=== PATIENT | female | born 1945 | race Caucasian/White ===

== ENCOUNTER 2019-07-27 11:48 | Outpatient (CLI) | payer MEDICARE, SELFPAY ==
--- NOTE | ~2019-07-27 | XR_ITS ---
XR knee RT 3V 07/27/2019 12:57 Indication: Right knee pain Procedure: 3 views right knee Comparison: 12/07/2017 Findings: There is mild-moderate osteoarthritis of the right knee. No fracture, subluxation or disloc ation. No significant joint effusion. No radiopaque foreign bodies. Impression: 1: Mild-moderate osteoarthritis of the right knee. Reviewed, dictated and finalized at location A. Impression: 1: Mild-moderate osteoarthritis of the right knee.
--- NOTE | ~2019-07-27 | US_ITS ---
EXAMINATION: US venous doppler LE RT DATE: 07/27/2019 12:21 INDICATION: Right lower limb pain TECHNIQUE: Grayscale ultrasound images without and with compression and Doppler ultrasound images of the right lower extremity veins were obtained. COMPARISON: None. FINDINGS: The visualized portions of right common femoral vein, profunda (deep) femoral vein, femoral vein, pop liteal vein, peroneal trunk, posterior tibial veins, peroneal veins, gastrocnemius vein and greater s aphenous vein outflow are patent. IMPRESSION: 1. No deep venous thrombosis in the right lower limb. Reviewed, dictated and finalized at location A.
--- NOTE | ~2019-07-27 | XR_ITS ---
EXAMINATION: XR hip LT 2V w AP pelvis DATE: 07/27/2019 12:57 INDICATION: Left hip pain. TECHNIQUE: An anteroposterior view of the pelvis and 2 views of left hip were obtained. COMPARISON: Lumbar spine radiograph 07/18/2018 FINDINGS: There is 14 degrees dextroscoliosis and severe spondylosis of lumbar spine. No fracture. Th ere is mild osteoarthritis of the hips. IMPRESSION: 1. Mild osteoarthritis of the hips. Reviewed, dictated and finalized at location A.
--- NOTE | ~2019-07-27 | XR_ITS ---
EXAMINATION: XR ankle RT 2V DATE: 07/27/2019 12:56 INDICATION: Right ankle pain. TECHNIQUE: 4 views of right ankle were obtained. COMPARISON: Right foot radiographs 12/07/2017 FINDINGS: Bone alignment is normal. No fracture. There are changes of ankylosis procedures of the fir st through third tarsometatarsal joints with instrumentation. There is severe osteoarthritis of the n aviculocuneiform joints and mild osteoarthritis of talonavicular joint. There are enthesophytes at th e posterior and plantar aspects of calcaneal tuberosity. Ankle soft tissue swelling is noted. IMPRESSION: 1. Polyarticular osteoarthritis. Reviewed, dictated and finalized at location A.
== END 2019-07-27 11:49 | disposition home or self-care (01) ==
PROVIDERS: PCP Family Medicine; Visit Provider Family Medicine
DX: M79.89 Other specified soft tissue disorders (principal); M16.0 Bilateral primary osteoarthritis of hip; M19.071 Primary osteoarthritis, right ankle and foot; M17.11 Unilateral primary osteoarthritis, right knee
CPT/HCPCS: 73502; 73562; 73600; 93971

== ENCOUNTER 2019-11-01 09:44 | Outpatient (CLI) | payer MEDICARE, SELFPAY ==
--- NOTE | 2019-11-01 09:45 | ECG_ITS ---
Measurements Intervals [place] Rate: 68 P: -2 MA: 149 QRS: 1 QRSD: 100 T: 14 QT: 407 QTc: 435 Interpretive Statements SINUS RHYTHM INCOMPLETE RIGHT BUNDLE BRANCH BLOCK BORDERLINE T WAVE ABNORMALITY- INFERIOR LEADS BASELINE ARTIFACT- II, III, AVF, V1-V2 BORDERLINE ECG Electronically Signed On 11-01-2019 10:06:31 CDT by Carlos Hastings D.O.
[2019-11-01 10:32] LABS: Anion Gap 6 mmol/L (8-16); Blood Urea Nitrogen 23 mg/dL (7-17); Calcium 9.4 mg/dL (8.4-10.2); Carbon Dioxide 27 mmol/L (22-30); Chloride 105 mmol/L (98-107); Estimated Glomerular Filt Rate > 60; Glucose 107 mg/dL (65-105); Potassium 3.9 mmol/L (3.4-5.0); Sodium 138 mmol/L (137-145)
== END 2019-11-01 09:45 | disposition home or self-care (01) ==
LOC: ANHSURGERY 09:45
PROVIDERS: Anesthesiology; PCP Family Medicine; Visit Provider Urology
DX: N39.3 Stress incontinence (female) (male) (principal); Z79.899 Other long term (current) drug therapy; I10 Essential (primary) hypertension; Z01.818 Encounter for other preprocedural examination
CPT/HCPCS: 36415; 80048; 87077; 87086; 87088; 87186; 93005

== ENCOUNTER 2019-11-08 02:56 | Outpatient (CLI) | payer MEDICARE, SELFPAY ==
[2019-11-08 18:40] LABS: SARS-CoV-2 RNA PCR Negative
== END 2019-11-08 02:57 | disposition home or self-care (01) ==
LOC: ANHCOVIDDT 02:59
PROVIDERS: PCP Family Medicine; Visit Provider Urology
DX: Z01.812 Encounter for preprocedural laboratory examination (principal); Z20.828 Contact with and (suspected) exposure to other viral communicable diseases
CPT/HCPCS: 87635; C9803; U0003

== ENCOUNTER 2019-11-10 01:26 | Day surgery (SDC) | payer MEDICARE, SELFPAY ==
[2019-10-31 10:00] VITALS: BMI 33.3
--- NOTE | 2019-11-05 10:48 | PM.IMHP ---
H&P: HPI History of Present Illness Date/Time: 11/05/19 10:48 Chief complaint: Stress Incontinence Narrative: Leigh Guzman is a 74 year old female with mixed urinary incontinence. Her overactive bladder symptoms are treated with medications. She is here today for a sling for her stress incontinence Review of Systems Review of Systems: All systems reviewed & are unremarkable except as noted in HPI and below PMFSH Social History Social History Smoking status: Never smoker Second hand tobacco smoke exposure: Yes Alcohol intake: current Drinks per week: 3 Substance use: never Substance use type: does not use Gender identity (if verbalized by the patient): Female Spiritual care concerns: No Agree to blood products: Yes Meds Home Medications and Allergies Home Medications Medication Instructions Recorded Confirmed Type esomeprazole magnesium 20 mg 20 mg PO HS 03/07/19 10/31/19 History tablet,delayed release pramipexole 0.5 mg tablet 0.5 mg PO HS 03/07/19 10/31/19 History mirabegron 25 mg tablet,extended 25 mg PO HS 07/25/19 10/31/19 History release 24 hr biotin 2,500 mcg PO HS 10/31/19 10/31/19 History cyanocobalamin (vitamin B-12) 5,000 mcg PO HS 10/31/19 10/31/19 History irbesartan-hydrochlorothiazide 1 tablet .ROUTE HS 10/31/19 10/31/19 History rosuvastatin 10 mg PO HS 10/31/19 10/31/19 History Allergies Allergy/AdvReac Type Severity Reaction Status Date / Time Penicillins Allergy Unknown RASH/SWELLI Verified 10/31/19 09:54 NG Exam Const: General: no acute distress HENMT: Mouth: Yes moist mucous membranes Eyes: General: appearance normal, both eyes and all related structures Resp: Effort & Inspection: normal respiratory effort GI: GI Palp: Yes Soft to palpation Skin: General skin exam: normal color Neuro: Cognition (Neuro): normal cognition Psych: Mental Status: mental status grossly normal Assessment and Plan Assessment and plan (1) ADAN (stress urinary incontinence, female): Code(s): N39.3 - Stress incontinence (female) (male) Status: Acute Assessment and Plan: urethral sling. Understands it will not address her overactive bladder symptoms
[2019-11-10 06:19] VITALS: BP 116/53; PULSE 70; RESP 18; TEMP 36.8; O2SAT 99
[2019-11-10] MEDS: LACTATED RINGERS 1,000 ML 30 ML IV CONT ×2 (06:30→08:56)
--- NOTE | 2019-11-10 06:53 | P.PNAN_ITS ---
Anes - Initial Pre Proc Eval Procedure: Operation Date: 11/10/19 07:30 Proposed Procedures p Urethral Sling - Juan Arechiga MD Date/Time: 11/10/19 06:53 Surgeon: Juan Arechiga MD Pre Op Diagnosis: Stress Incontinence Patient Data Age: 74 Gender: F Height: 5 ft 5 in Weight: 90.9 kg Allergies Allergy/AdvReac Type Severity Reaction Status Date / Time Penicillins Allergy Unknown RASH/SWELLI Verified 10/31/19 09:54 NG Home Medications Medication Instructions Recorded Confirmed Type esomeprazole magnesium 20 mg 20 mg PO HS 03/07/19 10/31/19 History tablet,delayed release pramipexole 0.5 mg tablet 0.5 mg PO HS 03/07/19 10/31/19 History mirabegron 25 mg tablet,extended 25 mg PO HS 07/25/19 10/31/19 History release 24 hr biotin 2,500 mcg PO HS 10/31/19 10/31/19 History cyanocobalamin (vitamin B-12) 5,000 mcg PO HS 10/31/19 10/31/19 History irbesartan-hydrochlorothiazide 1 tablet .ROUTE HS 10/31/19 10/31/19 History rosuvastatin 10 mg PO HS 10/31/19 10/31/19 History Patient hx anesthesia problems: none Family hx anesthesia problems: none [facility] Past Medical History Medical History (Updated 11/10/19 @ 06:54 by Ghassan Kim MD) GERD (gastroesophageal reflux disease) Hyperlipidemia Hypertension JESSA (obstructive sleep apnea) Requires supplemental oxygen Restless leg syndrome Surgical History Surgical History (Updated 11/10/19 @ 06:54 by Ghassan Kim MD) H/O foot surgery right foot, [address]ice History of appendectomy History of cholecystectomy Social History Social History Smoking status: Never smoker Second hand tobacco smoke exposure: Yes Alcohol intake: current Drinks per week: 3 Substance use: never Substance use type: does not use Living arrangements: alone Gender identity (if verbalized by the patient): Female Spiritual care concerns: No Agree to blood products: Yes Anes - Eval Final PreProcedure Day of Procedure 11/10/19 06:53 Patient weight: obese Heart: regular rate and rhythm Lungs: clear to auscultation Airway: Mallampati scale class II and special considerations poor dentition Neurological: alert and oriented Last oral intake: >/= 8 hours ASA classification: III Emergent: no Anesthetic plan: proceed Anesthesia type and monitoring: general GIVS and standard monitoring Informed Consent: The patient's anesthetic plan and its attendant risks and benefits were discussed with the patient/family/POA. Questions were solicited and answers provided to the satisfaction of the patient/family/POA.
--- NOTE | 2019-11-10 07:18 | WPDHPUPDATE1 ---
History and Physical Update Update Date/Time: 11/10/19 07:18 History and Physical has been reviewed, including an updated exam of the patient. There are NO changes in the patient's condition. Risks, benefits, and alternatives have been discussed and questions answered. Patient agrees to proceed with procedure.
--- NOTE | 2019-11-10 07:25 | WPDHPUPDATE1 ---
History and Physical Update Update Date/Time: 11/10/19 07:25 History and Physical has been reviewed, including an updated exam of the patient. There are NO changes in the patient's condition. Risks, benefits, and alternatives have been discussed and questions answered. Patient agrees to proceed with procedure. will remove skin tag from left thigh as well
[2019-11-10] MEDS: ceFAZolin 2 GM/D5W 50 ML 2 GM/50 ML BAG IVPB (07:27)
[2019-11-10] MEDS: BUPIVACAINE/EPINEPHRINE 0.25% 50 ML VIAL INFILTRATE (07:49)
[2019-11-10 08:04] VITALS: BP 118/48; PULSE 66; RESP 14; TEMP 36.3; O2SAT 100
--- NOTE | 2019-11-10 08:11 | PM.PROC ---
Procedure Note - Detailed Date of procedure: 11/10/19 Pre-op diagnosis: Stress Incontinence Stress urinary incontinence Skin tag left side Post-op diagnosis: same Procedure performed: Transobturator Mid-urethral sling excision of skin tag from the left thigh Cystoscopy Description of procedure: This is a patient with confirmed stress urinary incontinence. She desires correction. She understands the risks of bleeding, infection, damage to the urinary tract, lack of cure of stress incontinence, recurrence of stress incontinence, postoperative voiding dysfunction including incontinence and retention, need for ancillary procedures to loosen remove the sling, postoperative voiding dysfunction including retention and overactive bladder, hip and leg pain, dyspareunia, mesh related complications including exposure and extrusion. She agrees to proceed. She understands it will not help overactive bladder symptoms if present. She was correctly identified and informed consent obtained. She is brought to the operating room. She was given appropriate anesthesia. She was placed in the dorsal lithotomy position. All pressure points were padded. She was given appropriate perioperative antibiotics and a time-out performed. A Mclean catheter is placed. I marked out the thigh incisions anesthetize the skin and made those incisions. I anesthetized the anterior vaginal wall over the mid urethra. I made a 1 cm incision. I dissected out laterally taking great care not to injure the urethra or the vaginal wall. Passed the helical trocars 1st on the left and then on the right from the thigh incision towards the vaginal incision. Sling was connected to the trocars and brought out through the thigh incision. I tensioned the sling appropriately. I cut and removed the plastic sheaths. I closed the incision with 2 0 Vicryl. I then performed cystoscopy. There was no surgical artifact or abnormalities inside the bladder. The urethra was normal without surgical artifact. I cut the excess sling material. I closed the incisions with glue. I then sirisha out on the lips on the skin tag on the left thigh. The skin tag was approximately 1 cm. I excised the skin tag. I closed the skin with a 4OVicryl. Surgical glue was applied. The skin tag was sent to pathology. She was awakened and transferred to the PACU in stable condition. Implants: Mid urethral sling Surgeon: Juan Arechiga MD Drains: No Packing: No Pathology: none sent Complications: No immediate complications Condition: stable Disposition: PACU
[2019-11-10 08:15] VITALS: BP 103/56; PULSE 62; RESP 14; O2SAT 100
--- NOTE | 2019-11-10 08:29 | SUR.PREOP ---
PT ASKED THAT TESTING DIRECTOR ONLY BE CALLED FOR MONITORING ANALYST
[2019-11-10 08:30] VITALS: BP 102/65; PULSE 59; RESP 12; O2SAT 98
[2019-11-10 08:40] VITALS: BP 122/73; PULSE 61; RESP 14
== END 2019-11-10 09:30 | disposition home or self-care (01) ==
PROVIDERS: PCP Family Medicine; Visit Provider Urology
PROC: (CPT 57288; principal; 2019-11-10 07:30)
DX: N39.3 Stress incontinence (female) (male) (principal); L91.8 Other hypertrophic disorders of the skin; I10 Essential (primary) hypertension; E78.5 Hyperlipidemia, unspecified; K21.9 Gastro-esophageal reflux disease without esophagitis; G47.33 Obstructive sleep apnea (adult) (pediatric); Z99.81 Dependence on supplemental oxygen; G25.81 Restless legs syndrome; E66.9 Obesity, unspecified; Z68.33 Body mass index [BMI] 33.0-33.9, adult
CPT/HCPCS: 57288; 11200; 36415; 80048; 87077; 87086; 87088; 87186; 88304; 88305; 93005; A9270; C1771; J0690; J2405; J2704; J3010; J7030; J7120

== ENCOUNTER → 2020-02-29 12:43 | Outpatient (CLI) | payer MEDICARE, SELFPAY ==
--- NOTE | ~2020-02-29 | MM_ITS ---
EXAMINATION: MM screening [facility] BI w zandra HISTORY: Screening TECHNIQUE: Craniocaudal and mediolateral oblique 3-D tomosynthesis images were obtained and synthetic 2-D images were generated. CAD analysis was submitted and interpreted. COMPARISON: Comparison to multiple prior studies sequentially, with oldest reviewed study dated 08/2012. BREAST PARENCHYMAL COMPOSITION: There are scattered areas of fibroglandular density. FINDINGS: There is no evidence of suspicious mass, calcification, or architectural distortion to sugg est malignancy in either breast. There has been no suspicious interval change. IMPRESSION: 1. No mammographic evidence of malignancy. 2. Recommend routine screening mammography in one year. BI-RADS Category 1: Negative Reviewed, dictated and finalized at location A. [employer] [facility]
== END ==
PROVIDERS: PCP Family Medicine; Visit Provider Family Medicine
DX: Z12.31 Encounter for screening mammogram for malignant neoplasm of breast (principal)
CPT/HCPCS: 77063; 77067

== ENCOUNTER 2020-11-20 07:44 | Outpatient (CLI) | payer MEDICARE, SELFPAY ==
--- NOTE | ~2020-11-20 | XR_ITS ---
XR foot RT standing 2V DATE: 11/20/2020 08:10 INDICATION: Right foot pain. No recent injury. TECHNIQUE: Standing AP and lateral views COMPARISON: 12/07/2017 right foot FINDINGS: Postoperative change is noted from arthrodesis at the first through third tarsometatarsal j oints. There is osteoarthritic change at the tarsal joints. There is mild posterior and prominent plantar calcaneal enthesopathy. No recent fracture or dislocation, periosteal reaction or bone destruction. IMPRESSION: Status post arthrodesis at the first through third tarsometatarsal joints Osteolytic change at the tarsal joints Mild posterior and prominent plantar calcaneal enthesopathy Reviewed, dictated and finalized at location A.
--- NOTE | ~2020-11-20 | XR_ITS ---
XR foot LT standing 2V DATE: 11/20/2020 08:10 INDICATION: Left foot pain TECHNIQUE: Standing AP and lateral views COMPARISON: None FINDINGS: There is prominent plantar calcaneal enthesopathy. There is osteoarthritic change at the tarsal and tarsometatarsal joints and first metatarsophalangeal joint. No fracture or dislocation, periosteal reaction or bone destruction. IMPRESSION: Plantar calcaneal enthesopathy Tarsal, tarsometatarsal and first metatarsophalangeal joint osteoarthritis Reviewed, dictated and finalized at location A.
--- NOTE | ~2020-11-20 | XR_ITS ---
XR ankle LT min 3V DATE: 11/20/2020 08:10 INDICATION: Left ankle pain TECHNIQUE: 4 views COMPARISON: None FINDINGS: No fracture or dislocation of the ankle or disruption of the ankle mortise. There is osteoarthritic change at the tarsal and tarsometatarsal joints. Prominent plantar calcaneal enthesopathy. IMPRESSION: No fracture or dislocation of ankle Prominent plantar calcaneal enthesopathy Degenerative changes at the tarsal and tarsometatarsal joints Reviewed, dictated and finalized at location A.
--- NOTE | ~2020-11-20 | XR_ITS ---
XR ankle RT min 3V DATE: 11/20/2020 08:10 INDICATION: Right ankle pain TECHNIQUE: 4 standing views COMPARISON: None FINDINGS: No fracture or dislocation of the ankle or disruption of the ankle mortise. Prominent plantar calcaneal enthesopathy. Mild posterior calcaneal enthesopathy. There are osteoarthritic changes at the tarsal joints. Postoperative change/fusion at the first throu gh third tarsal-metatarsal joints. IMPRESSION: Status post surgical fusion at the first through third tarsometatarsal joints Plantar and posterior calcaneal enthesopathy Reviewed, dictated and finalized at location A. IMPRESSION: Status post surgical fusion at the first through third tarsometatar paola joints Plantar and posterior calcaneal enthesopathy
== END 2020-11-20 07:45 | disposition home or self-care (01) ==
PROVIDERS: PCP Internal Medicine; Visit Provider Internal Medicine
DX: M77.32 Calcaneal spur, left foot (principal); M19.072 Primary osteoarthritis, left ankle and foot; M77.31 Calcaneal spur, right foot
CPT/HCPCS: 73610; 73620

== ENCOUNTER 2020-11-28 08:11 | Outpatient (CLI) | payer MEDICARE, SELFPAY ==
--- NOTE | ~2020-11-28 | CT_ITS ---
EXAMINATION: CT chest high resolution [facility] EXAM DATE: 11/28/2020 08:41 INDICATION: R05.3 - Chronic cough. TECHNIQUE: Spiral CT of the chest without contrast. HRCT. Axial, coronal and sagittal images of the chest were reviewed. Coronal maximum intensity pixel images of chest reviewed. The dose-length prod uct (DLP) for this examination was 239.35 mGy-cm. The exposure was tailored according to patient siz e (auto mA exposure control), and iterative reconstruction (ASIR) was used as additional dose reducti on technique. Comparison is made to prior examination from 04/12/2015. FINDINGS: There is no intralobular septal thickening on the HRCT chest interstitial lung disease. T here are no pleural or pericardial effusions. Tracheobronchial tree is patent. There is no medias tinal, hilar or axillary lymphadenopathy. There is no pneumothorax. Heart normal in size. There is dense left anterior descending coronary artery versus stent, clinical correlation. Consider cardi ology evaluation if patient has not had this. There is right there are lobe nodule along the left posterolateral aspect of the neck measuring 2.5 c m. Deep location might make percutaneous FNA challenging. Consider thyroid ultrasound for risk strati fication. There is thoracic spondylosis without osteoblastic or osteolytic lesions identified. IMPRESSION: 1. Dense left anterior descending coronary artery versus stent, clinical correlation and consider ca rdiology consult if not previously evaluated. 2. Left thyroid lobe nodule; consider thyroid ultrasound for risk stratification. 3. Clear lungs. Reviewed, dictated and finalized at location A. IMPRESSION: 1. Dense left anterior descending coronary artery versus stent, clinical corre lation and consider cardiology consult if not previously evaluated. 2. Left thyroid lobe nodule; consider thyroid ultrasound for risk stratificati on. 3. Clear lungs.
--- NOTE | ~2020-11-28 | XR_ITS ---
EXAMINATION: XR UGI w barium swallow EXAM DATE: 11/28/2020 09:05 INDICATION: R05.3 - Chronic, vomiting after eating. TECHNIQUE: Standard thick followed by thin contrast barium esophagram examination was performed by Dr Van Chong, radiologist. Pulsed dose reduction fluoroscopy was used with fluoroscopic time of 0.6 minutes. The DAP for this procedure was 1.4 Gycm2. A total of 113 images obtained for the exam. Co mparison is made to prior examination from 04/17/2016. FINDINGS: The pharynx is symmetric and without evidence of mass lesion or mucosal irregularity aside from prominent cricopharyngeal impression, finding which was reported on prior study as well. There is no esophageal stricture or mass identified. There are no esophageal diverticula. Small sliding ga stroesophageal hiatal hernia. Reflux was demonstrated during the examination. IMPRESSION: 1. Small hiatal hernia, reflux demonstrated. 2. Prominent cricopharyngeal impression. Reviewed, dictated and finalized at location A.
== END 2020-11-28 08:12 | disposition home or self-care (01) ==
LOC: ANHIMG 08:12
PROVIDERS: PCP Internal Medicine; Visit Provider Internal Medicine
DX: R05.3 Chronic cough (principal); K44.9 Diaphragmatic hernia without obstruction or gangrene; E04.1 Nontoxic single thyroid nodule
CPT/HCPCS: 71250; 74240

== ENCOUNTER 2020-12-05 08:43 | Outpatient (CLI) | payer MEDICARE, SELFPAY ==
--- NOTE | 2020-12-05 09:00 | ECHO_ITS ---
Patient Info Name: Leigh Guzman Age: 75 years : 1945 Gender: Female Ht: 66 in Wt: 196 lbs BSA: 2.06 m2 HR: 76 bpm BP: 100 / 62 mmHg Technical Quality: Good Exam Date: 12/05/2020 9:27 AM Exam Location: [facility] Patient Status: Outpatient Admit Date: 12/05/2020 Staff Ordering Physician: Shankar Saavedra MD Chief Investigator: Clau Nichole RDCS Attending Provider: Shankar Saavedra MD Referring Physician: Quentin MAURICIO; Exam Type: CA echo doppler color flow Study Info Indications R01.1 - Cardiac murmur, unspecified Complete two-dimensional, color flow and Doppler transthoracic echocardiogram is performed. Summary 1. Complete two-dimensional, color flow and Doppler transthoracic echocardiogram is performed. 2. Left ventricular chamber dimension is normal. 3. Left ventricular systolic function is normal, estimated at 60-65%. 4. There is mildly increased left ventricular wall thickness. 5. The left ventricular diastolic function is grade I diastolic dysfunction. 6. E/e' 8 is minimally elevated. 7. Global longitudinal strain is normal at -18.3%. 8. Left atrial chamber dimension is mildly enlarged. 9. Right atrial chamber dimension is mildly enlarged. 10. There is mild mitral valve regurgitation. 11. There is mild tricuspid valve regurgitation. 12. No pulmonary hypertension, estimated pulmonary arterial systolic pressure is 31 mmHg. Left Ventricle E/e' 8 is minimally elevated. Global longitudinal strain is normal at -18.3%. Left ventricular chamber dimension is normal. Left ventricular systolic function is normal, estimated at 60-65%. There is mildly increased left ventricular wall thickness. The left ventricular diastolic function is grade I diastolic dysfunction. Right Ventricle Right ventricular chamber dimension is normal. Right ventricular systolic function is normal. Left Atria Left atrial chamber dimension is mildly enlarged. Right Atria Right atrial chamber dimension is mildly enlarged. Aortic Valve The aortic valve is trileaflet. There is no aortic valve stenosis. There is no aortic valve regurgitation. Pulmonic Valve There is no pulmonic regurgitation. Mitral Valve There is no mitral valve stenosis. There is mild mitral valve regurgitation. Tricuspid Valve There is mild tricuspid valve regurgitation. No pulmonary hypertension, estimated pulmonary arterial systolic pressure is 31 mmHg. Pericardium/Pleural There is no pericardial effusion. Inferior Vena Cava Normal inferior vena cava with >50% collapse upon inspiration consistent with normal right atrial pressure, 5 mmHg. Aorta The aortic root size at the sinus of Valsalva is normal. Left Ventricular Outflow Tract Name Value Normal LVOT 2D LVOT Diameter 2.0 cm LVOT Doppler LVOT Peak Gradient 5 mmHg LVOT Mean Gradient 3 mmHg LVOT VTI 25 cm LVOT VTI/AV VTI Ratio 1.0 LVOT Stroke Volume 75 ml LVOT CO 5.7 l/min
== END 2020-12-05 08:44 | disposition home or self-care (01) ==
PROVIDERS: PCP Internal Medicine; Visit Provider Internal Medicine
DX: G47.33 Obstructive sleep apnea (adult) (pediatric) (principal); R01.1 Cardiac murmur, unspecified; I10 Essential (primary) hypertension; I34.0 Nonrheumatic mitral (valve) insufficiency; I35.1 Nonrheumatic aortic (valve) insufficiency
CPT/HCPCS: 93306

== ENCOUNTER 2021-01-02 12:22 | Outpatient (CLI) | payer MEDICARE, SELFPAY ==
--- NOTE | ~2021-01-02 | US_ITS ---
EXAMINATION: US thyroid DATE: 01/02/2021 12:57 INDICATION: Nontoxic single thyroid nodule. TECHNIQUE: Multiple ultrasound images of the thyroid were obtained. COMPARISON: None. FINDINGS: The right thyroid lobe measures 3.2 x 1.4 x 1.3 cm. The left thyroid lobe measures 3.6 x 1.6 x 1.6 c m. In the left thyroid lobe, there is a 1.2 cm mixed cystic and solid, hypoechoic, avcea-[id number] n odule with smooth margin without echogenic foci (TI-RADS TR3). In the left thyroid lobe, there is an 8 mm solid, hypoechoic, [id number]-[id number]-gyvf nodule with smooth margin without echogenic foci (TR4). IMPRESSION: 1. Thyroid nodules, likely not clinically significant. No follow-up is needed. Reviewed, dictated and finalized at location A. 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
== END 2021-01-02 12:23 | disposition home or self-care (01) ==
PROVIDERS: PCP Internal Medicine; Visit Provider Internal Medicine
DX: E04.2 Nontoxic multinodular goiter (principal)
CPT/HCPCS: 76536

== ENCOUNTER 2021-01-22 07:57 | Outpatient (CLI) | payer MEDICARE, SELFPAY ==
--- NOTE | ~2021-01-22 | DEXA_ITS ---
Bone Density Report Name: CHRIS QURESHI Age: 75 Sex: Female Ethnicity: White Date of : 1945 Indication: postmenopausal; height loss; Referring Provider: NATHANIEL CASILLAS Study: Bone densitometry was performed. Exam Date: January 22, 2021 Accession number: [id number] Bone Density: Region BMD T-score Z-score Classification AP Spine (L1, L2) 1.249 2.5 4.8 Normal Femoral Neck (Left) 0.784 -0.6 1.6 Normal Total Hip (Left) 0.952 0.1 2.0 Normal Total Hip Bilateral Avg 0.959 0.2 2.0 Normal Femoral Neck (Right) 0.706 -1.3 0.9 Osteopenia Total Hip (Right) 0.965 0.2 2.1 Normal World Health Organization criteria for BMD impression classify patients as: Normal (T-score at or above -1.0), Osteopenia (T-score between -1.0 and -2.5), or Osteoporosis (T-score at or below -2.5). 10-year Fracture Risk(1): Major Osteoporotic Fracture 11% Hip Fracture 2.0% Reported Risk Factors: [place] (), Neck BMD=0.706, BMI=33.6 (1) FRAX(R) Version 3.08. Fracture probability calculated for an untreated patient. Fracture probability may be lower if the patient has received treatment. Clinical Information Provided by Patient: Has used the following medications: Vitamin D, Calcium Patient maximum height was 66 Menopause Age: 51 No regular weight bearing exercise Drinks caffeinated beverages Onset of menses at age 12 Number of children 1 Impression: The patient has low bone mass, based on the Right Femoral Neck T-score. The patient has an estimated ten-year risk of hip fracture of 2% and an estimated ten-year risk of major fracture of 11%, based on the WHO FRAX algorithm. Discussion: BONE DENSITY IS LOW AT ONE OR MORE SKELETAL SITES. This patient's lowest T-score is low at one or more skeletal sites. It meets the World Health Organization's (WHO) criteria for ?low bone mass? (T-score between -1.0 and -2.5). The patient's 10-year risk of fracture as calculated by FRAX is less than the threshold where pharmacological therapy is recommended by the National Osteoporosis Foundation (NOF). However, all treatment decisions require clinical judgment and consideration of individual patient factors, including patient preferences, comorbidities, previous drug use, risk factors not captured in the FRAX model (e.g., frailty, falls, vitamin D deficiency, increased bone turnover, interval significant decline in bone density) and possible under or overestimation of fracture risk by FRAX. The patient should follow a healthful lifestyle (good nutrition with adequate calcium and vitamin D, and appropriate weight-bearing exercise). Follow-Up: Consider repeating this study in 2 to 3 years to reassess this patient's status, or sooner if there is some new clinical indication. Reported by: LENKA on 01/22/2021 8:36:00 AM.
== END 2021-01-22 07:58 | disposition home or self-care (01) ==
LOC: ANHIMG 08:04
PROVIDERS: PCP Internal Medicine; Visit Provider Internal Medicine
DX: Z78.0 Asymptomatic menopausal state (principal); M85.851 Other specified disorders of bone density and structure, right thigh
CPT/HCPCS: 77080

== ENCOUNTER 2021-03-13 00:12 | Day surgery (SDC) | payer MEDICARE, SELFPAY ==
[2021-03-04 13:38] VITALS: BMI 32.6
[2021-03-13 09:10] VITALS: BP 146/76; PULSE 72; RESP 16; TEMP 37.1; O2SAT 99; BMI 33.0
[2021-03-13] MEDS: LACTATED RINGERS 1,000 ML 150 ML IV CONT (09:32)
--- NOTE | 2021-03-13 09:36 | PM.HPGS ---
History of Present Illness History of Present Illness Consent: Risks, benefits, and alternatives have been discussed and questions answered. Patient agrees to proceed with procedure. Chief complaint: GERD Narrative: Leigh Guzman is a 75 year old female who has been having episodes of vomiting after meal. This is usually triggered by having a cough. Generally shortly after eating she will cough and then gag and vomit up some food. This happens randomly. It may occur once or twice a week and then not for several weeks. She has been taking Nexium daily for quite a while Review of Systems Review of Systems: All systems reviewed & are unremarkable except as noted in HPI and below PMFSH Past Medical History Medical History BMI 32.0-32.9,adult BMI 33.0-33.9,adult Chronic cough Chronic pain of both feet Degenerative joint disease, ankle, left DJD (degenerative joint disease), multiple sites Encounter for Medicare annual wellness exam Encounter for routine adult health examination without abnormal findings Encounter to establish care GERD (gastroesophageal reflux disease) Grade I diastolic dysfunction Heart murmur Hiatal hernia Hyperlipidemia Hypertension Impacted cerumen of left ear Mitral regurgitation Obstructive sleep apnea 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 Pain, joint, ankle and foot Post-menopausal Pre-diabetes Restless leg syndrome Thyroid nodule Varicose veins of lower extremity Venous insufficiency of both lower extremities Vitamin D deficiency Surgical History Surgical History H/O foot surgery right foot, [address]ice History of bladder repair surgery Family History Family History Father Family history of lung cancer, Onset Age: 74 Patient's father is Family history of malignant neoplasm Mother Family history of malignant neoplasm of breast in first degree relative, Onset Age: 89 Patient's mother is Family history of malignant neoplasm of bone, Onset Age: 89 Grandparent Diabetes mellitus, Onset Age: 70 Acute myocardial infarction, Onset Age: 70 Other Hypertension Social History Social History Smoking status: Never smoker Second hand tobacco smoke exposure: No Alcohol intake: current Drinks per week: 12 Alcohol use details: wine/ beer Substance use: never Substance use type: does not use Living arrangements: alone Gender identity (if verbalized by the patient): Female Spiritual care concerns: No Agree to blood products: Yes Meds Home Medications and Allergies Home Medications Medication Instructions Recorded Confirmed Type esomeprazole magnesium 20 mg 20 mg PO HS 03/07/19 03/04/21 History tablet,delayed release pramipexole 1.5 mg tablet 0.5 mg PO QHS 09/27/20 03/04/21 History cholecalciferol (vitamin D3) 50 50 mcg PO DAILY 12/19/20 02/27/21 History mcg (2,000 unit) tablet rosuvastatin 20 mg tablet 20 mg PO DAILY #90 tablet 12/19/20 03/04/21 Rx cholecalciferol (vitamin D3) 1,250 See Rx Instructions .ROUTE 12/23/20 03/04/21 Rx mcg (50,000 unit) capsule .COMPLEX #10 cap irbesartan 300 See Rx Instructions .ROUTE 02/12/21 03/04/21 Rx mg-hydrochlorothiazide 12.5 mg .COMPLEX #90 tablet tablet Allergies Allergy/AdvReac Type Severity Reaction Status Date / Time Penicillins Allergy Unknown RASH/SWELLI Verified 03/13/21 09:21 NG Vital Signs Vital Signs - 24 hr 03/13/21 09:10 Temperature 37.1 C Pulse Rate 72 Respiratory Rate 16 Blood Pressure 146/76 H Pulse Oximetry 99 Exam Const: General: alert Orientation/consciousness: patient oriented x3 Resp: Auscultation: clear to auscultation bilaterally Cardio: Rhythm: regular rhythm GI: GI Palp: Yes So
--- NOTE | 2021-03-13 09:42 | WPDANESEPPF ---
Anes - Initial Pre Proc Eval Procedure: Operation Date: 03/13/21 10:30 Proposed Procedures p Esophagogastroduodenoscopy - Zaire Bolton MD Date/Time: 03/13/21 09:42 Surgeon: Zaire Bolton MD Pre Op Diagnosis: GERD Patient Data Age: 75 Gender: F Height: 1.65 m Weight: 89.9 kg Last Vital Signs Temp 98.7 F 03/13/21 09:10 Pulse 72 03/13/21 09:10 Resp 16 03/13/21 09:10 BP 146/76 H 03/13/21 09:10 Pulse Ox 99 03/13/21 09:10 Allergies Allergy/AdvReac Type Severity Reaction Status Date / Time Penicillins Allergy Unknown RASH/SWELLI Verified 03/13/21 09:21 NG Home Medications Medication Instructions Recorded Confirmed Type esomeprazole magnesium 20 mg 20 mg PO HS 03/07/19 03/04/21 History tablet,delayed release pramipexole 1.5 mg tablet 0.5 mg PO QHS 09/27/20 03/04/21 History cholecalciferol (vitamin D3) 50 50 mcg PO DAILY 12/19/20 02/27/21 History mcg (2,000 unit) tablet rosuvastatin 20 mg tablet 20 mg PO DAILY #90 tablet 12/19/20 03/04/21 Rx cholecalciferol (vitamin D3) 1,250 See Rx Instructions .ROUTE 12/23/20 03/04/21 Rx mcg (50,000 unit) capsule .COMPLEX #10 cap irbesartan 300 See Rx Instructions .ROUTE 02/12/21 03/04/21 Rx mg-hydrochlorothiazide 12.5 mg .COMPLEX #90 tablet tablet Patient hx anesthesia problems: none Family hx anesthesia problems: none Results Review: All pre-operative results and documents have been reviewed as part of the pre-operative evaluation. [facility] Past Medical History Medical History (Updated 02/27/21 @ 11:22 by Yana More [facility]) BMI 32.0-32.9,adult BMI 33.0-33.9,adult Chronic cough Chronic pain of both feet Degenerative joint disease, ankle, left DJD (degenerative joint disease), multiple sites Encounter for Medicare annual wellness exam Encounter for routine adult health examination without abnormal findings Encounter to establish care GERD (gastroesophageal reflux disease) Grade I diastolic dysfunction Heart murmur Hiatal hernia Hyperlipidemia Hypertension Impacted cerumen of left ear Mitral regurgitation Obstructive sleep apnea 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 Pain, joint, ankle and foot Post-menopausal Pre-diabetes Restless leg syndrome Thyroid nodule Varicose veins of lower extremity Venous insufficiency of both lower extremities Vitamin D deficiency Surgical History Surgical History H/O foot surgery right foot, [address]ice History of bladder repair surgery Family History Family History Father Family history of lung cancer, Onset Age: 74 Patient's father is Family history of malignant neoplasm Mother Family history of malignant neoplasm of breast in first degree relative, Onset Age: 89 Patient's mother is Family history of malignant neoplasm of bone, Onset Age: 89 Grandparent Diabetes mellitus, Onset Age: 70 Acute myocardial infarction, Onset Age: 70 Other Hypertension Social History Social History Smoking status: Never smoker Second hand tobacco smoke exposure: No Alcohol intake: current Drinks per week: 12 Alcohol use details: wine/ beer Substance use: never Substance use type: does not use Living arrangements: alone Gender identity (if verbalized by the patient): Female Spiritual care concerns: No Agree to blood products: Yes Anes - Eval Final PreProcedure Day of Procedure 03/13/21 09:42 Patient weight: obese Heart: regular rate and rhythm Lungs: clear to auscultation Airway: Mallampati scale class II Neurological: alert and oriented Last oral intake: >/= 8 hours ASA classification: III Emergent: no Anesthetic plan: proceed Anesthesia type and monitoring: general GIVS and standard monitoring Results Review: All pre-operativ
[2021-03-13 10:29] VITALS: BP 99/53; PULSE 75; RESP 28; O2SAT 99
[2021-03-13 10:39] VITALS: BP 124/62; PULSE 70; RESP 22; O2SAT 100
[2021-03-13 10:49] VITALS: BP 135/67; PULSE 70; RESP 28; O2SAT 100
== END 2021-03-13 11:06 | disposition home or self-care (01) ==
PROVIDERS: PCP Internal Medicine; Visit Provider Internal Medicine Gastroenterology
PROC: 0DJ08ZZ Inspection of Upper Intestinal Tract, Via Natural or Artificial Opening Endoscopic (ICD-10-PCS; CPT 43235; principal; 2021-03-13 10:30)
DX: K21.9 Gastro-esophageal reflux disease without esophagitis (principal); K44.9 Diaphragmatic hernia without obstruction or gangrene; K31.7 Polyp of stomach and duodenum; E78.5 Hyperlipidemia, unspecified; I11.0 Hypertensive heart disease with heart failure; G47.33 Obstructive sleep apnea (adult) (pediatric); R73.03 Prediabetes; G25.81 Restless legs syndrome; E55.9 Vitamin D deficiency, unspecified; I87.2 Venous insufficiency (chronic) (peripheral); E66.9 Obesity, unspecified; Z68.33 Body mass index [BMI] 33.0-33.9, adult
CPT/HCPCS: 43239; 43251; 88305; J2704; J7120

== ENCOUNTER → 2021-05-07 14:10 | Outpatient (CLI) | payer MEDICARE, SELFPAY ==
--- NOTE | ~2021-05-07 | MM_ITS ---
EXAMINATION: MM screening vidhya BI w zandra HISTORY: Screening mammogram TECHNIQUE: Craniocaudal and mediolateral oblique 3-D tomosynthesis images were obtained and synthetic 2-D images were generated. CAD analysis was submitted and interpreted. COMPARISON: 02/29/2020, 11/02/2018, 04/21/2017 bilateral screening mammogram examinations BREAST PARENCHYMAL COMPOSITION: There are scattered areas of fibroglandular density. FINDINGS: Bilateral stable small posterior upper outer quadrant benign-appearing intramammary lymph n odes. There is no evidence of suspicious mass, calcification, or architectural distortion to suggest malignancy in either breast. There has been no suspicious interval change. IMPRESSION: 1. No mammographic evidence of malignancy. 2. Recommend routine screening mammography in one year. BI-RADS Category 2: Benign finding(s). Reviewed, dictated and finalized at location A.
== END ==
PROVIDERS: PCP Internal Medicine; Visit Provider Internal Medicine
DX: Z12.31 Encounter for screening mammogram for malignant neoplasm of breast (principal)
CPT/HCPCS: 77063; 77067

== ENCOUNTER 2021-10-26 15:42 | Emergency (ER) | payer MEDICARE, SELFPAY ==
--- NOTE | ~2021-10-26 | XR_ITS ---
EXAMINATION: XR chest 2V Exam Date/Time: 10/26/2021 16:00 CDT HISTORY: cough X 8 days/had covid in July 2021 Comparison: 02/25/2016. RESULT: Lines, tubes, and devices: None. Lungs and pleura: Senescent change, otherwise clear. Cardiomediastinal silhouette: Stable. Other: No acute osseous or upper abdominal finding. IMPRESSION: No acute cardiopulmonary process. Reviewed, dictated and finalized at location K.
--- NOTE | ~2021-10-26 | XR_ITS ---
EXAM: XR knee LT min 4V DATE: 10/26/2021 16:12 HISTORY: fall 8days ago/pain anterior distal to patella . COMPARISON: 12/07/2017. FINDINGS: Decreased mineralization. No fracture or dislocation. No lytic or blastic lesion. Mild art hritic changes. Subtle chondrocalcinosis. No erosion or periosteal change. Soft tissues within normal limits. IMPRESSION: No acute osseous finding in the left knee. Reviewed, dictated and finalized at location K.
[2021-10-26 15:51] VITALS: BP 117/71; PULSE 95; RESP 20; TEMP 36.5; O2SAT 98
--- NOTE | 2021-10-26 16:21 | ED.GENADULT ---
HPI - General Adult General Chief complaint: Upper Respiratory Infection Stated complaint: cough,chest pain,lt knee pain Source: patient Mode of arrival: ambulatory History of Present Illness HPI narrative: This is a 76-year-old female that has been in [place] for the past week according to patient on the first day she got there she fell and injuried her left knee and it has been hurting every since. Patient states she can ambulate but if feels like she broke a piece off and she would like a xray due the pain when she touches her leg. Pt also states she has had this cough with chest tightness with cough, and runny nose and head congestion. Patient states whe she coughs she sometime is unable to stopl Related Data Home Medications Medication Instructions Recorded Confirmed esomeprazole magnesium 20 mg 20 mg PO HS 03/07/19 10/26/21 tablet,delayed release (Nexium 24HR) cholecalciferol (vitamin D3) 50 50 mcg PO DAILY 12/19/20 10/26/21 mcg (2,000 unit) tablet biotin 5,000 mcg disintegrating 10,000 mcg PO DAILY 07/09/21 10/26/21 tablet multivitamin 1 tablet PO DAILY 07/09/21 10/26/21 pramipexole 0.5 mg tablet 1.5 mg PO HS 10/26/21 10/26/21 Allergies Allergy/AdvReac Type Severity Reaction Status Date / Time nitrofurantoin AdvReac Intermediate Weakness Verified 10/26/21 15:45 Penicillins AdvReac Intermediate RASH/SWELLI Verified 10/26/21 15:45 NG Review of Systems Review of Systems: Knee pain , chest tightness, cough, congestion All systems reviewed & are unremarkable except as noted in HPI and below PMFSH Past Medical History Medical History BMI 32.0-32.9,adult BMI 33.0-33.9,adult Chronic cough Chronic pain of both feet Degenerative joint disease, ankle, left DJD (degenerative joint disease), multiple sites Encounter for Medicare annual wellness exam Encounter for routine adult health examination without abnormal findings Encounter to establish care Gastric polyp GERD (gastroesophageal reflux disease) Grade I diastolic dysfunction Heart murmur Hiatal hernia Hyperlipidemia Hypertension Impacted cerumen of left ear Mitral regurgitation Obstructive sleep apnea On half-way drug therapy Pain, joint, ankle and foot Post-menopausal Pre-diabetes Restless leg syndrome Thyroid nodule Varicose veins of lower extremity Venous insufficiency of both lower extremities Vitamin D deficiency Surgical History Surgical History H/O foot surgery right foot, [address] History of bladder repair surgery Family History Family History Father Family history of lung cancer, Onset Age: 74 Patient's father is Family history of malignant neoplasm Mother Family history of malignant neoplasm of breast in first degree relative, Onset Age: 89 Patient's mother is Family history of malignant neoplasm of bone, Onset Age: 89 Grandparent Diabetes mellitus, Onset Age: 70 Acute myocardial infarction, Onset Age: 70 Other Hypertension Social History Social History Smoking status: Never smoker Second hand tobacco smoke exposure: No Alcohol intake: current Drinks per week: 12 Alcohol use details: wine/ beer Substance use: never Substance use type: does not use Gender identity (if verbalized by the patient): Female Spiritual care concerns: No Agree to blood products: Yes Exam Narrative: GENERAL:Well-appearing, well-nourished, and in no acute distress. HEAD:Normocephalic, atraumatic. EYES: PERRLA and EOMI. ENT: Nares clear, no rhinorrhea Mucous membranes moist. copious secretion NECK: Supple. CHEST: Clear to auscultation. No respiratory distress. HEART: Regular rate and rhythm. Normal peripheral puls
== END 2021-10-26 16:40 | disposition home or self-care (01) ==
PROVIDERS: Emergency Provider Nurse Practitioner Family; PCP Internal Medicine
DX: J40 Bronchitis, not specified as acute or chronic (principal); J06.9 Acute upper respiratory infection, unspecified; M25.562 Pain in left knee; M19.90 Unspecified osteoarthritis, unspecified site; K21.9 Gastro-esophageal reflux disease without esophagitis; R01.1 Cardiac murmur, unspecified; E78.5 Hyperlipidemia, unspecified; I10 Essential (primary) hypertension; I34.0 Nonrheumatic mitral (valve) insufficiency; G47.33 Obstructive sleep apnea (adult) (pediatric); R73.03 Prediabetes; G25.81 Restless legs syndrome; I87.2 Venous insufficiency (chronic) (peripheral); E55.9 Vitamin D deficiency, unspecified
CPT/HCPCS: 71046; 73564; 99214; G0463

== ENCOUNTER 2021-12-16 14:43 | Outpatient (CLI) | payer MEDICARE, SELFPAY ==
--- NOTE | 2021-12-16 15:24 | ECG_ITS ---
Measurements Intervals Tully Rate: 79 P: 45 IA: 158 QRS: 9 QRSD: 90 T: 31 QT: 378 QTc: 433 Interpretive Statements SINUS RHYTHM INCOMPLETE RIGHT BUNDLE BRANCH BLOCK BORDERLINE ECG COMPARED TO ECG 11/01/2019 10:26:25 NO SIGNIFICANT CHANGES Electronically Signed On 12-16-2021 15:40:02 CDT by Carlos Hastings D.O.
== END 2021-12-16 14:44 | disposition home or self-care (01) ==
LOC: ANHCARD 14:46
PROVIDERS: PCP Nurse Practitioner Family; Visit Provider Nurse Practitioner Family
DX: R00.0 Tachycardia, unspecified (principal); I49.9 Cardiac arrhythmia, unspecified; I10 Essential (primary) hypertension; I34.0 Nonrheumatic mitral (valve) insufficiency; I45.10 Unspecified right bundle-branch block
CPT/HCPCS: 93005

== ENCOUNTER 2021-12-26 10:29 | Outpatient (CLI) | payer MEDICARE, SELFPAY ==
--- NOTE | 2021-12-29 16:02 | WPDHOLTEREM ---
Holter/Event Monitor Holter/Event Monitor Date of procedure: 12/26/21 Holter/Event Procedure: 24 Hr Holter Monitor Indications: Tachycardia Conclusion: 1. 24 hour holter monitor on 12/26/21. 2. Predominant rhythm is sinus rhythm. HR range 55-121 bpm; average HR 82 bpm. 3. There are 8 premature supraventricular complexes and 2 supraventricular couplets. There is 1 episode of atrial tachycardia at 122 bpm lasting 7 beats. 4. There are 13 premature ventricular complexes. No ventricular tachycardia. 5. No sinoatrial or atrioventricular blocks. No significant pauses greater than 2 seconds. 6. No symptoms available for correlation.
== END 2021-12-26 10:30 | disposition home or self-care (01) ==
LOC: ANHCARD 10:31
PROVIDERS: PCP Nurse Practitioner Family; Visit Provider Nurse Practitioner Family
DX: R00.0 Tachycardia, unspecified (principal); I49.9 Cardiac arrhythmia, unspecified
CPT/HCPCS: 93225; 93226

== ENCOUNTER 2022-01-27 10:30 | Outpatient (RCR) | payer MEDICARE, SELFPAY ==
--- NOTE | 2022-01-06 16:48 | PTOPEVAL1 ---
Assessment and note entered by Sundeep Ruiz, PT Evaluation Information Assessment Status Evaluation Diagnosis abnormal gait, low back pain Onset gradual Subjective Information Patient reports she has been dealing with low back pain and decreased imbalance ever since she had 4 surgeries on the R foot. She reports no radiating symptoms with the back back and also no history of any falls secondary to her balance and walking issues. She does not use any assistive device. She is able to sleep through the night and mainly sleeps on her side. She reports increased time walking does cause increased pain on her back. Reported Pain Level Pain Score 5: Self Report Additional Pain Score Comments non-radiating Assessment PT Clinical Summary Queenie is a 76 year old female coming into the clinic with low back pain and balance issues. The patient reports non-radiating pain and that she has walked with her mild path deviation for a long time. She has decreased strength in her low back , hip extension and hip abduction. Tightness in her calfs and quads. scores on the dynamic gait index and Tinetti to indicate a fall risk. A potential leg length discrepancy that could also be SI dysfunction. I believe physical therapy could benefit the patient to work on a home exercises of stretches and strengthening to help improve imbalances along with manual therapy and modalities to help with pain control and education on a potential heel lift for the R shoe. Along with work on balance activities to reduce risk of falls. Plan of Care Interventions Electrical Stimulation,Gait Training,Manual Therapy,Neuro Re-education,Patient/Caregiver Education,Therapeutic Activities,Therapeutic Exercise,Ultrasound PT Services Indicated Yes Treatment Frequency and 1-2x/wk for 4 weeks Duration These treatments will address the objective and functional deficits as defined above. The patient will be advanced safely and appropriately in order for the patient to progress towards his/her prior level of function. Additional exercises will be introduced and as well as a comprehensive home exercise program upon discharge, if needed, ?to ensure carryover of functional gains achieved in the clinic. This treatment plan has been reviewed and agreement upon by the patient.
--- NOTE | 2022-03-23 14:31 | PCPTNOTE ---
Admitting Provider: Attending Provider: Nu Peterson NP Patient:Leigh Guzman Date of :1945 Patient has not returned for any further treatments since 01/27/2022, therefore (he/she) will be discharged at this time. Patient?s initial visit was on 01/06/2022 09:30 and (he/she) had a total of ____4____ visits with 4 cancelations The goals have been partially met. Thank you for referring this patient to [facility]. Please review, sign, date and return this discharge summary BEN. I have been updated about the patient's current status and I agree with discharge from the above service at this time. Referring Physician Date
== END 2022-03-23 14:57 | disposition home or self-care (01) ==
LOC: ANHPT 10:30
PROVIDERS: PCP Nurse Practitioner Family; Visit Provider Nurse Practitioner Family
DX: M54.50 Low back pain, unspecified (principal); M25.561 Pain in right knee; M25.562 Pain in left knee; R26.89 Other abnormalities of gait and mobility
CPT/HCPCS: 97110; 97112; 97140; 97161; 97530

== ENCOUNTER → 2022-06-10 13:25 | Outpatient (CLI) | payer MEDICARE, SELFPAY ==
--- NOTE | ~2022-06-10 | MM_ITS ---
EXAMINATION: MM screening vidhya BI w zandra HISTORY: Screening mammogram TECHNIQUE: Craniocaudal and mediolateral oblique 3-D tomosynthesis images were obtained and synthetic 2-D images were generated. CAD analysis was submitted and interpreted. COMPARISON: 05/07/2021, 02/29/2020, 11/02/2018 bilateral screening mammogram examinations BREAST PARENCHYMAL COMPOSITION: There are scattered areas of fibroglandular density. FINDINGS: There is no evidence of suspicious mass, calcification, or architectural distortion to sugg est malignancy in either breast. There has been no suspicious interval change. IMPRESSION: 1. No mammographic evidence of malignancy. 2. Recommend routine screening mammography in one year. BI-RADS Category 1: Negative..... Reviewed, dictated and finalized at location A.
== END ==
PROVIDERS: PCP Nurse Practitioner Family; Visit Provider Nurse Practitioner Family
DX: Z12.31 Encounter for screening mammogram for malignant neoplasm of breast (principal)
CPT/HCPCS: 77063; 77067

== ENCOUNTER → 2023-01-29 14:54 | Outpatient (CLI) | payer MEDICARE, SELFPAY ==
--- NOTE | ~2023-01-29 | XR_ITS ---
EXAMINATION: XR knee RT min 4V DATE: 01/29/2023 15:14 INDICATION: Right knee pain TECHNIQUE: Four views of the right knee were obtained. COMPARISON: 07/27/2019 FINDINGS: Alignment is normal. No fracture or osteochondral lesion. There is moderate tricompartmenta l osteoarthritis of the knee. No joint effusion/synovitis. Soft tissues are unremarkable. IMPRESSION: 1. Moderate tricompartmental osteoarthritis without acute osseous abnormality. Reviewed, dictated and finalized at location B. 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
== END ==
PROVIDERS: PCP Family Medicine; Visit Provider Nurse Practitioner Family
DX: M17.11 Unilateral primary osteoarthritis, right knee (principal)
CPT/HCPCS: 73564

== ENCOUNTER 2023-05-28 10:22 | Emergency (ER) | payer MEDICARE, SELFPAY ==
--- NOTE | 2023-05-28 10:26 | ED.URI ---
HPI - URI/Sore Throat General Chief Complaint: Upper Respiratory Infection Stated Complaint: congestion,cough Time Seen by Provider: 05/28/23 10:25 Source: patient Mode of arrival: ambulatory Limitations: no limitations History of Present Illness HPI Narrative: Patient is a 77-year-old female who presents with 4 days of congestion, cough. Patient has history of bronchitis. Patient just got back from [place] and has been taking Mucinex. Patient denies any fever, chills, nausea, vomiting, diarrhea. States everyone on the trip was sick. Reports cough is keeping her up at night and causes chest wall pain with coughing fit. Related Data Home Medications Medication Instructions Recorded Confirmed cholecalciferol (vitamin D3) 50 50 mcg PO DAILY 12/19/20 01/29/23 mcg (2,000 unit) tablet multivitamin 1 tablet PO DAILY 07/09/21 01/29/23 biotin 2,500 mcg capsule 2,500 mcg PO DAILY 12/16/21 01/29/23 esomeprazole magnesium 20 mg 20 mg PO DAILY 12/16/21 01/29/23 capsule,delayed release (Nexium) iron, carbonyl [Iron Chews] PO DAILY 12/16/21 01/29/23 pramipexole 0.5 mg tablet 0.5 mg PO TID 12/16/21 01/29/23 sumatriptan succinate 100 mg tablet See Rx Instructions PO .COMPLEX 12/16/21 01/29/23 Allergies Allergy/AdvReac Type Severity Reaction Status Date / Time Penicillins Allergy Intermediate RASH/SWELLI Verified 05/28/23 10:34 NG nitrofurantoin AdvReac Intermediate Weakness Verified 01/29/23 14:17 Review of Systems Review of Systems: All systems reviewed & are unremarkable except as noted in HPI and below Constitutional: Constitutional: Denies body ache(s), Denies chills, Denies fatigue, Denies fever(s), Denies headache(s), Denies malaise and Denies weakness Eyes: Eyes: Denies blurry vision, Denies itchy eyes and Denies loss of vision ENT: Denies otalgia, Denies headache(s), Reports nasal congestion, Denies sinus pain and Denies sore throat Cardiovascular: Cardiovascular: Denies chest pain, Denies irregular heart rhythm and Denies dyspnea Respiratory: Respiratory: Reports cough and Denies dyspnea Gastrointestinal: Gastrointestinal: Denies abdominal pain, Denies diarrhea, Denies nausea and Denies vomiting Musculoskeletal: Musculoskeletal: Denies back pain, Denies myalgias and Denies arthralgias Integumentary/Breasts: Skin/Breast: Denies pruritus and Denies rash Neurologic: Denies headache(s), Denies loss of vision and Denies weakness Psychiatric: Psychiatric: Reports no additional psychiatric complaints Endocrine: Endocrine: Denies fatigue Allergic/Immunologic: Allergic/Immunologic: Denies itchy eyes PMFSH Past Medical History Medical History Anemia Arrhythmia Arthritis B12 deficiency Balance problem Bilateral knee pain BMI 32.0-32.9,adult BMI 33.0-33.9,adult Chronic cough Chronic pain of both feet Degenerative joint disease, ankle, left DJD (degenerative joint disease), multiple sites Elevated uric acid in blood Encounter for Medicare annual wellness exam Encounter for routine adult health examination without abnormal findings Encounter to establish care Encounter to establish care Gastric polyp GERD (gastroesophageal reflux disease) Grade I diastolic dysfunction Heart murmur Hiatal hernia Hyperlipidemia Hypertension Impacted cerumen of left ear Low back pain Migraine Mitral regurgitation Obstructive sleep apnea On roasterman drug therapy Pain, joint, ankle and foot Paresthesia Post-menopausal Pre-diabetes Restless leg syndrome Right knee pain Screening for breast cancer Situational depression Tachycardia Thyroid nodule Varicose veins of lower extremity Venous insufficiency of both lower extremities Vitamin D deficiency Surgical History Surgical History H/O foot surgery right foot, [address]ice History of bladder repair surgery Family History Family History (Revie
[2023-05-28 10:34] VITALS: BP 111/58; PULSE 103; RESP 18; TEMP 37.1; O2SAT 97
[2023-05-28 10:35] VITALS: BP 111/58; PULSE 103; RESP 18; TEMP 37.1; O2SAT 97
== END 2023-05-28 10:46 | disposition home or self-care (01) ==
PROVIDERS: Emergency Provider Nurse Practitioner Family; PCP Nurse Practitioner Family
DX: J06.9 Acute upper respiratory infection, unspecified (principal); M19.90 Unspecified osteoarthritis, unspecified site; K21.9 Gastro-esophageal reflux disease without esophagitis; I10 Essential (primary) hypertension; I34.0 Nonrheumatic mitral (valve) insufficiency; R73.03 Prediabetes; G25.81 Restless legs syndrome; E55.9 Vitamin D deficiency, unspecified
CPT/HCPCS: 99213; G0463

== ENCOUNTER 2023-06-22 12:48 | Emergency (ER) | payer MEDICARE, SELFPAY ==
[2023-06-22] VITALS (12 sets, daily range): BP systolic 104–154; BP diastolic 54–90; PULSE 63–83; RESP 14–25; TEMP 37; O2SAT 94–97
--- NOTE | ~2023-06-22 | XR_ITS ---
EXAMINATION: XR chest 2V DATE: 06/22/2023 13:38 INDICATION: Shortness of breath and productive cough TECHNIQUE: PA and lateral views of the chest were obtained. COMPARISON: Chest radiograph dated 10/26/2021 FINDINGS: Mild airspace opacity basilar right lower lobe. No pulmonary edema, pleural effusion or pneumothorax. The cardiomediastinal silhouette is normal. Mild S-shaped scoliosis of the thoracic and lumbar spine with severe spondylosis. IMPRESSION: 1. Mild basilar opacity right lower lobe could represent atelectasis or pneumonia. Reviewed, dictated and finalized at location A. IMPRESSION: 1. Mild basilar opacity right lower lobe could represent atelectasis or pneumon ia.
--- NOTE | 2023-06-22 13:14 | ECG_ITS ---
SEE SCANNED COPY FOR CONFIRMED REPORT. MTDD
[2023-06-22 13:41] LABS: Basophils Percent Auto 0.2 % (0.2-1.2); Hematocrit 31.4 % (37.0-47.0); Hemoglobin 10.2 g/dL (12.0-15.0); Immature Granulocyte Absolute 0.22 K/mm3 (0.00-0.031); Immature Granulocyte Percent A 1.8 % (0-0.5); Lymphocytes Absolute Auto 0.62 K/mm3 (0.9-3.2); Mean Corpuscular HGB Conc 32.5 g/dl (32-36); Mean Corpuscular Hemoglobin 30.4 pg (26-34); Mean Corpuscular Volume 93.5 fl (80-100); Mean Platelet Volume 9.7 fl (7.4-10.4); Monocytes Absolute Auto 0.3 K/mm3 (0.1-0.6); Monocytes Percent Auto 2.8 % (2.6-8.5); Neutrophils Absolute Auto 11.1 K/mm3 (1.3-6.7); Neutrophils Percent Auto 90.2 % (45.5-73.1); Platelet Count Result 327 k/mm3 (150-375); Red Blood Count 3.36 M/mm3 (4.2-5.4); Red Cell Distribution Width 15.1 % (11.5-14.5); White Blood Count 12.3 K/mm3 (4.5-10.0)
[2023-06-22 14:00] LABS: Alanine Aminotransferase 101 U/L (6-35); Albumin Level 3.8 g/dL (3.5-5.1); Alkaline Phosphatase 75 U/L (38-126); Anion Gap 5 mmol/L (4-12); Aspartate Amino Transferase 300 U/L (14-36); Bilirubin,Total 0.5 mg/dL (0.2-1.3); Blood Urea Nitrogen 18 mg/dL (7-17); Calcium 9.1 mg/dL (8.4-10.2); Carbon Dioxide 23 mmol/L (22-30); Chloride 107 mmol/L (98-107); Estimated CRCL calculation 53 ml/min; Estimated Glomerular Filt Rate > 60; Glucose 144 mg/dL (65-110); Potassium 3.3 mmol/L (3.4-5.0); Sodium 135 mmol/L (137-145)
[2023-06-22 14:15] LABS: Platelet Estimate Adequate (Adequate); Schistocytes None Seen; Stomatocytes 1+
--- NOTE | 2023-06-22 14:18 | ED.GENADULT ---
HPI - General Adult General Chief complaint: Shortness of Breath/Dyspnea Stated complaint: dyspnea Time Seen by Provider: 06/22/23 13:26 History of Present Illness HPI narrative: 78-year-old female presenting to the emergency department for evaluation of persistent upper respiratory symptoms. Patient states since May for she has had cough and congestion. Patient did have follow-up with urgent care twice. Patient had previously been on doxycycline but states that her symptoms persisted. Patient does have follow-up few days ago with urgent care again and was started on prednisone. Patient states that she has had no worsening symptoms but present to the ED due to persistent symptoms. Related Data Home Medications Medication Instructions Recorded Confirmed cholecalciferol (vitamin D3) 50 50 mcg PO DAILY 12/19/20 01/29/23 mcg (2,000 unit) tablet multivitamin 1 tablet PO DAILY 07/09/21 01/29/23 biotin 2,500 mcg capsule 2,500 mcg PO DAILY 12/16/21 01/29/23 esomeprazole magnesium 20 mg 20 mg PO DAILY 12/16/21 01/29/23 capsule,delayed release (Nexium) iron, carbonyl [Iron Chews] PO DAILY 12/16/21 01/29/23 pramipexole 0.5 mg tablet 0.5 mg PO TID 12/16/21 01/29/23 sumatriptan succinate 100 mg tablet See Rx Instructions PO .COMPLEX 12/16/21 01/29/23 Allergies Allergy/AdvReac Type Severity Reaction Status Date / Time Penicillins Allergy Intermediate RASH/SWELLI Verified 06/22/23 13:24 NG nitrofurantoin AdvReac Intermediate Weakness Verified 06/22/23 13:24 Review of Systems Review of Systems: All systems reviewed & are unremarkable except as noted in HPI and below [facility] Past Medical History Medical History Anemia Arrhythmia Arthritis B12 deficiency Balance problem Bilateral knee pain BMI 32.0-32.9,adult BMI 33.0-33.9,adult Chronic cough Chronic pain of both feet Degenerative joint disease, ankle, left DJD (degenerative joint disease), multiple sites Elevated uric acid in blood Encounter for Medicare annual wellness exam Encounter for routine adult health examination without abnormal findings Encounter to establish care Encounter to establish care Gastric polyp GERD (gastroesophageal reflux disease) Grade I diastolic dysfunction Heart murmur Hiatal hernia Hyperlipidemia Hypertension Impacted cerumen of left ear Low back pain Migraine Mitral regurgitation Obstructive sleep apnea On jail drug therapy Pain, joint, ankle and foot Paresthesia Post-menopausal Pre-diabetes Restless leg syndrome Right knee pain Screening for breast cancer Situational depression Tachycardia Thyroid nodule Varicose veins of lower extremity Venous insufficiency of both lower extremities Vitamin D deficiency Surgical History Surgical History H/O foot surgery right foot, [address]ice History of bladder repair surgery Family History Family History Father Family history of lung cancer, Onset Age: 74 Patient's father is Family history of malignant neoplasm Mother Family history of malignant neoplasm of breast in first degree relative, Onset Age: 89 Patient's mother is Family history of malignant neoplasm of bone, Onset Age: 89 Grandparent Diabetes mellitus, Onset Age: 70 Acute myocardial infarction, Onset Age: 70 Other Hypertension Social History Social History Smoking status: Never smoker Second hand tobacco smoke exposure: No Alcohol intake: current Drinks per week: 1 Alcohol use details: wine/ beer Substance use: never Substance use type: does not use Lack of Transportation: No Lack of Food: Never True Current Housing: I Have Housing Concerned About Future Housing: No Difficulty Paying Gas/Electric
[2023-06-22] MEDS: ALBUTEROL SULFATE NEB 2.5 MG/3 ML INH INHALATION (14:46)
[2023-06-22 15:23] LABS: NT Pro B Type Natriuretic Pept 771 pg/mL (19.9-100)
== END 2023-06-22 16:17 | disposition home or self-care (01) ==
PROVIDERS: Student in an Organized Health Care Education/Training Program; Emergency Provider Emergency Medicine; PCP Nurse Practitioner Family
DX: J18.9 Pneumonia, unspecified organism (principal); I34.0 Nonrheumatic mitral (valve) insufficiency; I87.2 Venous insufficiency (chronic) (peripheral); I11.9 Hypertensive heart disease without heart failure; E53.8 Deficiency of other specified B group vitamins; E55.9 Vitamin D deficiency, unspecified; D64.9 Anemia, unspecified; G47.33 Obstructive sleep apnea (adult) (pediatric); R73.03 Prediabetes; G25.81 Restless legs syndrome; K21.9 Gastro-esophageal reflux disease without esophagitis; M19.072 Primary osteoarthritis, left ankle and foot; I45.10 Unspecified right bundle-branch block
CPT/HCPCS: 36415; 71046; 80053; 83880; 85025; 93005; 94640; 99284